=== PATIENT | male | born 1960 | race Caucasian/White ===

== ENCOUNTER 2016-12-11 18:18 | Emergency (ER) | payer OTHER ==
--- NOTE | ~2016-12-11 | CT2 ---
[facility] A Service of [facility] & [facility] RADIOLOGY TEXT RESULTS PATIENT: TRUONG SOLIS LOCATION: [facility] : 56 UNIT #: [id number] AGE: [address]: Mook Bernard MD SEX: M ORDER DR: [id number] [facility]. [place], [place] [address] [id number] E MR#: [id number] Acc #: [id number] NAME: TRUONG SOLIS : 1960 SEX: M STUDY DATE/TIME: 12/11/2016 19:19 UNIT: [facility] ROOM: STUDY DESCRIPTION: CT Abd and Pelv W Cont Attending Physician: Austin Bernard M.D. Ordering Physician: Praneeth Rodriguez M.D. Primary Care Physician: Tito Fortune M.D. MEDICAL IMAGING REPORT This report is preliminary unless electronic signature is present EXAM CT of the abdomen and pelvis with contrast dated 12/11/2016 COMPARISON None. HISTORY Epigastric and esophageal pain for [address] of the abdomen and pelvis were obtained with IV and oral contrast in the axial plane followed by sagittal and coronal reformats. This CT exam was performed with one or more of the following radiation dose reduction techniques: automatic exposure control, adjustment of mA and/or kV according to patient size, and iterative reconstruction. FINDINGS Imaged lungs are well-aerated. Heart, mediastinum do not demonstrate any significant abnormality. Degenerative changes are noted in the thoracolumbar spine. ABDOMEN: Liver, spleen, pancreas, adrenal glands are within normal limits. Two exophytic lesions are noted in the right kidney which are hypodense and most consistent with simple cysts. The relatively larger one is in the anterior and posterior right kidney measuring 1.9 x 2.1 cm. Diverticulosis of the colon is noted without evidence of acute diverticulitis. No aortic aneurysm or dissection is seen. There is a gallstone without acute cholecystitis. Small hiatal hernia is seen. Degenerative changes are noted in the thoracolumbar spine. PELVIS: Urinary bladder, prostate and seminal vesicles do not demonstrate any significant abnormality. STS. [facility] A Service of [facility] & [facility] RADIOLOGY TEXT RESULTS PATIENT: TRUONG SOLIS [facility] [id number] : 56 UNIT #: [id number] AGE: [address]: Mook Bernard MD SEX: M ORDER DR: IMPRESSION 1. No acute abnormality in the abdomen or pelvis. 2. Cholelithiasis without acute cholecystitis. 3. Two right renal cysts. 4. Evidence of Lap-band surgery with suspicious mild prominence of the distal esophagus/hiatal hernia. Benign. 5. Degenerative changes in the spine. Dictated by... Christofer Arredondo M.D. THIS IS AN ELECTRONICALLY VERIFIED REPORT Christofer Arredondo M.D. at 12/14/2016 3:05 PM CPR/eddie TD: 12/13/2016 08:12 JOB #: [id number] MEDICAL IMAGING REPORT Page 1 of 1 COPY
--- NOTE | ~2016-12-11 | EKG ---
PATIENT: TRUONG SOLIS UNIT #: [id number] Ventricular Rate: 74 BPM Atrial Rate: 74 BPM P-R Interval: 168 ms QRS Duration: 94 ms Q-T Interval: 384 ms QTC Calculation(Bezet): 426 ms P [place]: 20 degrees Calculated R [place]: 59 degrees Calculated T [place]: 8 degrees Diagnosis Line: Normal sinus rhythm Diagnosis Line: Inferior infarct , age undetermined Diagnosis Line: Abnormal ECG Diagnosis Line: When compared with ECG of 06-SEP-2012 09:09, Diagnosis Line: Inferior infarct is now Present Diagnosis Line: Confirmed by SHADIA JONES MD ([id number]) on Diagnosis Line: 12/12/2016 4:35:09 PM INTERPRETING MD: ROBERT PAGAN
[2016-12-11 16:32] LABS: BASOPHIL# 0.1 X10e3 (0-0.3); BASOPHIL% 0.7 % (0-2.5); EOSINOPHIL# 0.1 X10e3 (0-0.7); EOSINOPHIL% 1.2 % (0.0-7.0); HEMATOCRIT 45.1 % (38.0-50.0); HEMOGLOBIN 14.7 gm/dL (13.0-16.0); LYMPHOCYTE# 2.4 X10e3 (1.0-3.5); LYMPHOCYTE% 25.8 % (17.0-45.0); MEAN CELL VOLUME 92.5 FL (83-96); MEAN CORPUSCULAR HEMOGLOBIN 30.2 PG (28-34); MEAN CORPUSCULAR HGB CONC 32.7 g/dL (30-36); MEAN PLATELET VOLUME 7.5 FL (6.5-11.5); MONOCYTE# 0.6 X10e3 (0-1.0); MONOCYTE% 6.8 % (3.0-12.0); NEUTROPHIL# 6.2 X10e3 (1.5-7.1); NEUTROPHIL% 65.5 % (40-75); PLATELET COUNT 328 X10e3 (140-420); RED BLOOD COUNT 4.87 X10e (3.90-5.60); RED CELL DISTRIBUTION WIDTH 13.8 % (11.0-15.5); WHITE BLOOD COUNT 9.4 X10e3 (4.0-10.5)
[2016-12-11 16:38] LABS: DIFF IND NO
[2016-12-11 17:01] LABS: ALBUMIN SERUM 4.4 g/dL (3.5-5.0); BILIRUBIN, DIRECT 0.1 mg/dL (0.0-0.2); BILIRUBIN,INDIRECT 0.5 mg/dL (0.0-0.9); BILIRUBIN,TOTAL 0.6 mg/dL (0.2-2.0); BUN/CREATININE RATIO 17.77; CALCIUM SERUM 9.7 mg/dL (8.4-10.2); CREATININE SERUM 0.9 mg/dL (0.6-1.4); GLOM FILT RATE Estimated 93.8 mL/min (>60); POTASSIUM 4.5 mmol/L (3.5-5.1); PROTEIN TOTAL SERUM 7.2 g/dL (6.0-8.3)
[2016-12-11 17:42] LABS: URINE SOURCE CLEAN CATCH
[2016-12-11 17:50] LABS: URINE APPEARANCE CLEAR; URINE BILIRUBIN NEG (NEG); URINE BLOOD NEG (NEG); URINE COLOR YELLOW; URINE GLUCOSE NEG (NEG); URINE KETONE NEG (NEG); URINE LEUKOCYTE ESTERASE NEG (NEG); URINE NITRATE NEG (NEG); URINE PROTEIN NEG (NEG); URINE SPECIFIC GRAVITY 1.015 (1.003-1.035); URINE UROBILINOGEN 0.2 MG/DL (NEG)
[2016-12-11 17:57] LABS: CULTURE INDICATED? NO
[~2016-12-11 18:18] MED LIST: CENTRUM PO; CYMBALTA PO; FISH OIL500 M1 PO; FLEXERIL10 MG PO; OXYCODON HCL-AP1 TA2 PO; PRAVASTATIN SOD20 MG PO; PRILOSEC20 MG PO
== END 2016-12-11 21:12 | disposition home or self-care (01) ==
LOC: CED 18:18
DX: K80.20 Calculus of gallbladder without cholecystitis without obstruction (principal); K44.9 Diaphragmatic hernia without obstruction or gangrene; K21.9 Gastro-esophageal reflux disease without esophagitis; Z90.49 Acquired absence of other specified parts of digestive tract; Z98.890 Other specified postprocedural states
CPT/HCPCS: 36415; 74177; 80048; 80076; 81003; 83690; 85025; 93005; 99284; Q9967